=== PATIENT | female | born 1990 | race Caucasian/White ===

== ENCOUNTER 2020-07-11 09:48 | Inpatient (IN) | payer OTHER, SELFPAY ==
[~2020-07-11] VITALS: Ht 167.6 cm; Wt 80.7 kg
[2020-07-11] MEDS: LR 1,000 ML IV SCH ×2 (10:50→20:10)
[2020-07-11] MEDS ORDERED: TERBUTALINE SULFATE 1 MG/ML VIAL SUBCUT ONE ×2 (11:45→18:50)
[2020-07-11] MEDS ORDERED: OXYTOCIN/0.9 % SODIUM CHLORIDE 1,000 ML IV SCH (11:45)
[2020-07-11] MEDS ORDERED: OXYTOCIN/0.9 % SODIUM CHLORIDE 1,000 ML IV ONE (12:10)
[2020-07-11 12:33] LABS: BASOPHILS % (AUTO) 0.3 % (0.0-2.0); EOSINOPHILS # (AUTO) 0.1 K/uL (0.0-0.4); EOSINOPHILS % (AUTO) 0.5 % (0.0-4.0); HEMATOCRIT 38.2 % (36-48); LYMPHOCYTES # (AUTO) 2.3 K/uL (1.0-5.5); LYMPHOCYTES % (AUTO) 16.5 % (20.5-51.5); MEAN CORPUSCULAR HEMOGLOBIN 31 pg (27-31); MEAN CORPUSCULAR HGB CONC 34 % (32-36); MEAN CORPUSCULAR VOLUME 91 fL (79.0-98.0); MONOCYTES # (AUTO) 0.7 K/uL (0.0-1.0); MONOCYTES % (AUTO) 5.2 % (1.7-9.3); NEUTROPHILS # (AUTO) 10.9 K/uL (1.8-7.7); NEUTROPHILS % (AUTO) 77.5 % (40.0-70.0); PLATELET COUNT (AUTO) 175 K/uL (130-430); RED BLOOD CELL COUNT(AUTO) 4.19 MIL/uL (4.2-6.2); RED CELL DISTRIBUTION WIDTH 12.7 % (9.0-15.0); WHITE BLOOD COUNT (AUTO) 14.1 K/uL (4.8-10.8)
[2020-07-11 13:09] VITALS: BP_SYST 112
[2020-07-11] MEDS: NALBUPHINE HCL 10 MG/ML AMP IVP PRN ×2 (16:58→18:58)
[2020-07-11] MEDS ORDERED: OXYTOCIN 10 UNIT/ML VIAL IM ONE (20:00)
[2020-07-11] MEDS ORDERED: OXYCODONE/ACETAMINOPHEN 5-325 TABLET PO PRN (21:30)
[2020-07-11] MEDS ORDERED: HYDROcodone/ACETAMIN 5-325 MG TAB (NORCO/ VICODIN) PO PRN (21:30)
[2020-07-12] MEDS ORDERED: HYDROcodone/ACETAMIN 5-325 MG TAB (NORCO/ VICODIN) PO PRN (02:00)
[2020-07-12] MEDS ORDERED: DERMOPLAST SPRAY TP PRN (02:00)
[2020-07-12] MEDS ORDERED: DOCUSATE SODIUM 100 MG CAPSULE PO PRN (02:00)
[2020-07-12] MEDS ORDERED: WITCH HAZEL LEAF 1 MED.PAD MED.PAD TP PRN (02:00)
[2020-07-12] MEDS ORDERED: SENNOSIDES/DOCUSATE SODIUM 1 TAB TABLET(SENOKOT-S) PO PRN (02:00)
[2020-07-12] MEDS ORDERED: LANOLIN 7 GM OINT. TP PRN (02:00)
[2020-07-12] MEDS ORDERED: WITCH HAZEL LEAF 1 MED.PAD MED.PAD TP ONE (02:14)
[2020-07-12] MEDS ORDERED: DERMOPLAST SPRAY TP ONE (02:15)
[2020-07-12] MEDS ORDERED: OXYTOCIN/0.9 % SODIUM CHLORIDE 1,000 ML IV SCH (02:45)
[2020-07-12] MEDS ORDERED: HYDROcodone/ACETAMIN 5-325 MG TAB (NORCO/ VICODIN) ONE (03:08)
[2020-07-12] MEDS: IBUPROFEN 600 MG TABLET PO SCH (06:40)
[2020-07-12] MEDS ORDERED: IBUPROFEN 600 MG TABLET ONE (06:41)
[2020-07-12 08:00] LABS: HEMATOCRIT 27.9 % (36-48); HEMOGLOBIN 9.5 g/dL (12.0-16.0)
[2020-07-12] MEDS ORDERED: LIDOCAINE PF 1% 30ML(POUR BTL) INJ ONE (12:31)
[2020-07-12] MEDS ORDERED: DOCUSATE SODIUM 100 MG CAPSULE PO ONE (19:46)
[2020-07-13] MEDS ORDERED: IBUPROFEN 600 MG TABLET ONE ×3 (00:06→11:53)
[2020-07-13] MEDS: IBUPROFEN 600 MG TABLET PO SCH ×2 (06:28)
[2020-07-16 19:06] LABS: FTA-Ab (T PALLIDUM) Non Reactive (Non Reactive)
== END 2020-07-13 12:10 | disposition home or self-care (01) | DRG 807 ==
LOC: SPU 09:48 → OBSVTOIN 09:48 → SPU 07-12 02:45
PROVIDERS: ADMIT Obstetrics & Gynecology; ATTEND Obstetrics & Gynecology
PROC: 10E0XZZ Delivery of Products of Conception, External Approach (ICD-10-PCS; principal; 2020-07-11)
PROC: 0HQ9XZZ Repair Perineum Skin, External Approach (ICD-10-PCS; 2020-07-11)
DX: O70.0 First degree perineal laceration during delivery (principal); Z37.0 Single live birth; Z20.822 Contact with and (suspected) exposure to COVID-19; Z3A.39 39 weeks gestation of pregnancy
CPT/HCPCS: 36415; 85018-TC; 85025; 86592; 86780; 86886; 86900; 86901; J2001; J2300; J2590; J3105